=== PATIENT | female | born 1955 | race Caucasian/White ===

== ENCOUNTER 2017-07-13 10:08 | Emergency (ER) | payer MEDICARE, OTHER ==
[~2017-07-13] VITALS: Ht 160 cm; Wt 100.0 kg
[2017-07-13 10:22] VITALS: Ht 160 cm; Wt 100.0 kg
--- NOTE | 2017-07-13 11:15 | PSY ---
Date/Time of Note Date/Time of Note DATE: 07/13/17 TIME: 11:10 Psychiatric Subjective Eval Consent Pt consented to telemedicine: Yes Subjective Evaluation Patient location: emergency Chief Complaint: BIB RA FOR EVAL OF SI TRIED TO WRAP PHONE CHARGING CORD AROUND NECK History of present illness 62 yo female withhx schizophrenia found by her family in bed with a cord wrapped around her neck in a suicide attempt. Pt says she would rather be because she is ill and is a burden to her family. Pt is depressed and pranoid, denies hi, mark ah or vh. Poor energy low motivation, hopeless, helpless. Pt is on Haldol 5mg poqhs, Remeron 30 mgpoqhs, gabapentin 300 mg potid, Cogentin 1 mg BID, clonopin 2 mg bid. Past psychiatric history last inpt was years ago Hospitalization: yes Family History denies Medical history as per record Allergies: Coded Allergies: Penicillins (Verified Allergy, Unknown, 07/01/07) Substance Abuse Substance use: No known substance abuse Social History Marital status: Level of education: elementary DPA/Conservatorship: No Occupation/Halfway: on ssi Psychiatric Objective Eval Review of Systems: Review of Systems: Not Applicable Physical Examination: Physical Examination: Not Applicable Appetite: Decreased Energy: Decreased Interest: Decreased Mental Status Examination: Appearance: Groomed Eye Contact: Good Psychomotor Activity: Normal Behavior: Cooperative Speech: Clear AFFECT: Depressed Mood: Depressed Though Process: Linear Thought Content: Delusions Suicidal: Yes Homicidal: No On 72 hour hold: No Orientation: x3 Cognition: Alert Insight: Impared Judgement: Impared Laboratory Results Laboratory Tests Test 07/13/17 10:31 Urine Color YELLOW Urine Clarity SLIGHTLY CLOUDY Urine pH 8.0 Urine Specific [place] 1.004 Urine Ketones NEGATIVEmg/dL Urine Nitrite POSITIVEmg/dL Urine Bilirubin NEGATIVEmg/dL Urine Urobilinogen NEGATIVEmg/dL Urine Leukocyte Esterase TRACELeu/ul Urine Microscopic RBC 1/HPF Urine Microscopic WBC 1/HPF Urine Bacteria FEW/HPF Urine Hemoglobin NEGATIVEmg/dL Urine Glucose 1+mg/dL Urine Total Protein NEGATIVEmg/dl Assessment and Plan Assessment/Diagnosis [place] I: SCHIZOAFFECTIVE DISORDER [place] II: DEFERED [place] III: DM II [place] IV: MODERATE [place] V: GAF 25 Recommendation/Plan Medication Management PLEASE VERIFY THE DOSES OF PT'S HOME MEDS VIA [facility] PHARM[facility] AND CONTINUE WHILE IN ED Psychotherapy DEFER TO INPT Pt. Caregiver/Family Education DAUGHTER INFORMED ABOUT INPT TRANSFER Follow-up/Disposition 5150 FOR DTS; TRANSFER TO INPT PSYCH. 5150 Recommendation: RAMÓN Guthrie MD Jul 13, 2017 11:15
--- NOTE | 2017-07-13 11:15 | PSY ---
Date/Time of Note Date/Time of Note DATE: 07/13/17 TIME: 11:10 Psychiatric Subjective Eval Consent Pt consented to telemedicine: Yes Subjective Evaluation Patient location: emergency Chief Complaint: BIB RA FOR EVAL OF SI TRIED TO WRAP PHONE CHARGING CORD AROUND NECK History of present illness 62 yo female withhx schizophrenia found by her family in bed with a cord wrapped around her neck in a suicide attempt. Pt says she would rather be because she is ill and is a burden to her family. Pt is depressed and pranoid, denies hi, mark ah or vh. Poor energy low motivation, hopeless, helpless. Pt is on Haldol 5mg poqhs, Remeron 30 mgpoqhs, gabapentin 300 mg potid, Cogentin 1 mg BID, clonopin 2 mg bid. Past psychiatric history last inpt was years ago Hospitalization: yes Family History denies Medical history as per record Allergies: Coded Allergies: Penicillins (Verified Allergy, Unknown, 07/01/07) Substance Abuse Substance use: No known substance abuse Social History Marital status: Level of education: elementary DPA/Conservatorship: No Occupation/Shelter: on ssi Psychiatric Objective Eval Review of Systems: Review of Systems: Not Applicable Physical Examination: Physical Examination: Not Applicable Appetite: Decreased Energy: Decreased Interest: Decreased Mental Status Examination: Appearance: Groomed Eye Contact: Good Psychomotor Activity: Normal Behavior: Cooperative Speech: Clear AFFECT: Depressed Mood: Depressed Though Process: Linear Thought Content: Delusions Suicidal: Yes Homicidal: No On 72 hour hold: No Orientation: x3 Cognition: Alert Insight: Impared Judgement: Impared Laboratory Results Laboratory Tests Test 07/13/17 10:31 Urine Color YELLOW Urine Clarity SLIGHTLY CLOUDY Urine pH 8.0 Urine Specific [place] 1.004 Urine Ketones NEGATIVEmg/dL Urine Nitrite POSITIVEmg/dL Urine Bilirubin NEGATIVEmg/dL Urine Urobilinogen NEGATIVEmg/dL Urine Leukocyte Esterase TRACELeu/ul Urine Microscopic RBC 1/HPF Urine Microscopic WBC 1/HPF Urine Bacteria FEW/HPF Urine Hemoglobin NEGATIVEmg/dL Urine Glucose 1+mg/dL Urine Total Protein NEGATIVEmg/dl Assessment and Plan Assessment/Diagnosis [place] I: SCHIZOAFFECTIVE DISORDER [place] II: DEFERED [place] III: DM II [place] IV: MODERATE [place] V: GAF 25 Recommendation/Plan Medication Management PLEASE VERIFY THE DOSES OF PT'S HOME MEDS VIA HER PHARM[facility]Y AND CONTINUE WHILE IN ED Psychotherapy DEFER TO INPT Pt. Caregiver/Family Education DAUGHTER INFORMED ABOUT INPT TRANSFER Follow-up/Disposition 5150 FOR DTS; TRANSFER TO INPT PSYCH. 5150 Recommendation: RAMÓN Guthrie MD Jul 13, 2017 11:15
--- NOTE | 2017-07-13 13:27 | ERD ---
ER Documentation Chief Complaint Chief Complaint BIB RA FOR EVAL OF SI TRIED TO WRAP PHONE CHARGING CORD AROUND NECK HPI Patient is a 62-year-old female with depression, diabetes, and high blood pressure presents with suicide ideation and attempt. The patient was brought in by ambulance. The patient tried to strangle herself with an iPhone cord. The door was locked at home per the family and they were able to break in. The patient has had depression but no recent changes. ROS All systems reviewed and are negative except as per history of present illness. Allergies Allergies: Coded Allergies: Penicillins (Verified Allergy, Unknown, 07/01/07) PMhx/Soc Hx Psychiatric Problems: Yes (SCIZOPHRENIA, DEPRESSION) Hx Miscellaneous Medical Probl: Yes (DM) Hx Alcohol Use: No Hx Substance Use: No Hx Tobacco Use: No Smoking Status: Never smoker FmHx Family History: No diabetes Physical Exam Vitals Vital Signs Date Time Temp Pulse Resp B/P Pulse Ox O2 Delivery O2 Flow Rate FiO2 07/13/17 10:22 98.3 80 18 135/79 99 Physical Exam Const: No acute distress Head: Atraumatic Eyes: Normal Conjunctiva ENT: Normal External Ears, Nose and Mouth. Neck: Full range of motion..~ No meningismus. Resp: Clear to auscultation bilaterally Cardio: Regular rate and rhythm, no murmurs Abd: Soft, non tender, non distended. Normal bowel sounds Skin: No petechiae or rashes Back: No midline or flank tenderness Ext: No cyanosis, or edema Neur: Awake and alert Psych: Depressed affect with suicidal ideation Result Diagram: 07/13/17 1049 07/13/17 1049 Results 24 hrs Laboratory Tests Test 07/13/17 10:31 07/13/17 10:49 Urine Color YELLOW Urine Clarity SLIGHTLY CLOUDY Urine pH 8.0 Urine Specific [place] 1.004 Urine Ketones NEGATIVEmg/dL Urine Nitrite POSITIVEmg/dL Urine Bilirubin NEGATIVEmg/dL Urine Urobilinogen NEGATIVEmg/dL Urine Leukocyte Esterase TRACELeu/ul Urine Microscopic RBC 1/HPF Urine Microscopic WBC 1/HPF Urine Bacteria FEW/HPF Urine Hemoglobin NEGATIVEmg/dL Urine Glucose 1+mg/dL Urine Total Protein NEGATIVEmg/dl Urine Opiates Screen Negative Urine Barbiturates Negative Urine Amphetamines Screen Negative Urine Benzodiazepines Screen Negative Urine Cocaine Screen Negative Urine Cannabinoids Negative White Blood Count 7.710^3/ul Red Blood Count 5.2210^6/ul Hemoglobin 14.1g/dl Hematocrit 43.2% Mean Corpuscular Volume 82.8fl Mean Corpuscular Hemoglobin 27.0pg Mean Corpuscular Hemoglobin Concent 32.6g/dl Red Cell Distribution Width 14.6% Platelet Count 22208^3/UL Mean Platelet Volume 10.7fl Neutrophils % 70.3% Lymphocytes % 21.2% Monocytes % 5.0% Eosinophils % 2.6% Basophils % 0.5% Nucleated Red Blood Cells % 0.0/100WBC Neutrophils # 5.410^3/ul Lymphocytes # 1.610^3/ul Monocytes # 0.410^3/ul Eosinophils # 0.210^3/ul Basophils # 0.010^3/ul Nucleated Red Blood Cells # 0.010^3/ul Sodium Level 140mmol/L Potassium Level 4.3mmol/L Chloride Level 99mmol/L Carbon Dioxide Level 28mmol/L Anion Gap 17 Blood Urea Nitrogen 7mg/dl Creatinine 0.45mg/dl Glucose Level 220mg/dl Calcium Level 9.5mg/dl Total Bilirubin 0.3mg/dl Direct Bilirubin 0.00mg/dl Indirect Bilirubin 0.3mg/dl Aspartate Amino Transf (AST/SGOT) 36IU/L Alanine Aminotransferase (ALT/SGPT) 44IU/L Alkaline Phosphatase 127IU/L Total Protein 8.0g/dl Albumin 4.8g/dl Globulin 3.20g/dl Albumin/Globulin Ratio 1.50 Salicylates Level < 1.0mg/dl Acetaminophen Level < 10.0ug/ml Ethyl Alcohol Level < 10.0mg/dl Procedures/[facility] Patient is a 62-year-old female who presents with suicidal ideation and attempt. The patient is medically clear for psychiatric transfer. The patient was seen by Dr. Chance from psychiatry who recommended a 5150 hold. The patient will be transferred once we find an accepting facility. Departure Diagnosis: Primary Impression: Suicide threat or attempt Condition: MARIO Mensah MD Jul 13, 2017 13:27
[2017-07-14] MEDS ORDERED: ASPI-535 PO (03:09)
[2017-07-14] MEDS ORDERED: SITA100T8 PO (03:09)
[2017-07-14] MEDS ORDERED: BENZ2TAB37 PO (03:09)
[2017-07-14] MEDS ORDERED: METF500T4 PO (03:09)
[2017-07-14] MEDS ORDERED: BENZ1TAB7 PO (03:09)
[2017-07-14] MEDS ORDERED: GLIP-95 PO (03:09)
[2017-07-14] MEDS ORDERED: HALO5TAB23 PO (03:20)
[2017-07-14] MEDS ORDERED: MIRT15TA5 PO (03:20)
[2017-07-14] MEDS ORDERED: CHOL100062 PO (03:20)
[2017-07-14] MEDS ORDERED: GABA300C16 PO (03:20)
[2017-07-14] MEDS ORDERED: BIMA2.5D BOTH EYES (03:22)
[2017-07-14] MEDS ORDERED: COMBIG5 BOTH EYES (03:22)
[2017-07-14] MEDS ORDERED: LUTE1CAP5 PO (03:22)
[2017-07-14 08:28] VITALS: BP 160/69; PULSE 89; RESP 18; TEMP 98.5
== END 2017-07-14 10:03 ==
LOC: E/R 10:08
DX: T14.91XA Suicide attempt, initial encounter (principal); E11.9 Type 2 diabetes mellitus without complications; X58.XXXA Exposure to other specified factors, initial encounter; Y92.009 Unspecified place in unspecified non-institutional (private) residence as the place of occurrence of the external cause
CPT/HCPCS: 36415; 80053; 80306; 80307; 81001; 82962; 85025; 99285